=== PATIENT | female | born 1990 | race Caucasian/White ===

== ENCOUNTER 2023-03-28 08:58 | Day surgery (SDC) | payer MEDICAID ==
[~2023-03-28] VITALS: Ht 175.3 cm; Wt 93.0 kg
[2023-03-28 09:25] VITALS: O2SAT 98
[2023-03-28] MEDS ORDERED: ACETAMINOPHEN I.V. 1000 MG 100 ML IV ONE (09:31)
[2023-03-28 09:34] LABS: HCG,QUAL RESULT NEGATIVE (NEGATIVE)
[2023-03-28] MEDS ORDERED: ONDANSETRON HCL 4 MG/2 ML VIAL ONE (09:37)
[2023-03-28] MEDS ORDERED: SUGAMMADEX SODIUM 200 MG/2 ML VIAL IV ONE (09:37)
[2023-03-28] MEDS ORDERED: ROCURONIUM BROMIDE 10 MG/ML (ZEMURON) ONE (09:37)
[2023-03-28] MEDS ORDERED: PROPOFOL 200MG/ 20ML VIAL (DIPRIVAN) IV ONE (09:37)
[2023-03-28] MEDS ORDERED: DESFLURANE 15 MIN GAS INH ONE (09:37)
[2023-03-28] MEDS ORDERED: fentaNYL CITRATE/PF 100 MCG/2 ML AMP ONE (09:37)
[2023-03-28] MEDS ORDERED: MIDAZOLAM HCL 2 MG/2 ML VIAL (VERSED) ONE (09:37)
[2023-03-28] MEDS ORDERED: NS IRRIG SOLN 1000 ML IR ONE (09:37)
[2023-03-28] MEDS ORDERED: LR 1,000 ML IV.SOLN IV ONE (09:37)
[2023-03-28] MEDS ORDERED: DEXAMETHASONE SOD PHOSPHATE 4 MG/ML VIAL ONE (09:37)
[2023-03-28] MEDS ORDERED: OXYMETAZOLINE HCL 0.05% NASAL SPRAY NS ONE (09:37)
[2023-03-28] MEDS ORDERED: WATER FOR IRRIGATION,STERILE 1,000 ML IRRIG.SOLN IR ONE (09:37)
[2023-03-28] MEDS ORDERED: MUPIROCIN 2% TOPICAL OINTMENT 22 GM ONE (09:37)
[2023-03-28] MEDS ORDERED: LIDOCAINE 2%, 20 ML MDV ONE (09:37)
[2023-03-28] MEDS ORDERED: LIDOCAINE/EPI 1% 1:100000 20 ML VIAL ONE (09:37)
[2023-03-28] MEDS ORDERED: LABETALOL 100 MG/ 20ML VIAL IVP PRN (10:30)
[2023-03-28] MEDS ORDERED: MEPERIDINE HCL/PF 25 MG/ML DISP.SYRIN IVP PRN (10:30)
[2023-03-28] MEDS ORDERED: hydrALAZINE HCL 20 MG/ML VIAL IVP PRN (10:30)
[2023-03-28] MEDS ORDERED: LR 1,000 ML IV SCH (10:30)
[2023-03-28] MEDS ORDERED: METOCLOPRAMIDE HCL 10 MG/2 ML VIAL IVP PRN (10:30)
[2023-03-28] MEDS ORDERED: MIDAZOLAM HCL 2 MG/2 ML VIAL (VERSED) IVP PRN (10:30)
[2023-03-28] MEDS ORDERED: HYDROmorphone 1 MG/ML INJ. CARTRIDGE IVP PRN ×2 (10:30)
[2023-03-28] MEDS: HYDROmorphone 1 MG/ML INJ. CARTRIDGE ONE ×2 (12:55→13:00)
[2023-03-28] MEDS ORDERED: METOCLOPRAMIDE HCL 10 MG/2 ML VIAL ONE (14:14)
[2023-03-28 17:37] VITALS: BP_SYST 121; PULSE 71; RESP 16
== END 2023-03-28 16:25 | disposition home or self-care (01) ==
LOC: SDS 08:58 → SMU 09:07 → SDS 16:25
PROVIDERS: ATTEND Otolaryngology
DX: J34.2 Deviated nasal septum (principal); D38.5 Neoplasm of uncertain behavior of other respiratory organs; J32.9 Chronic sinusitis, unspecified; J34.89 Other specified disorders of nose and nasal sinuses; F41.9 Anxiety disorder, unspecified; E66.9 Obesity, unspecified; J30.1 Allergic rhinitis due to pollen; Z79.899 Other long term (current) drug therapy
CPT/HCPCS: 31298; 84703; 88304; 88305; 88311; 30140; 30520; 31255; 31256; J3490; J1100; J2001; J2765; J3465; J2405; J2704; J3010; J1170; J7120; C1726; J0131